=== PATIENT | male | born 1970 ===

== ENCOUNTER 2023-04-24 05:30 | Day surgery (SDC) | payer OTHER ==
[2023-04-21 10:49] LABS: URINE APPEARANCE Cloudy; URINE BILIRRUBIN Negative (NEGATIVE); URINE BLOOD Negative; URINE COLOR Yellow; URINE GLUCOSE Negative (NEGATIVE); URINE LEUKOCYTE Trace; URINE NITRATE Negative; URINE PROTEIN Negative (NEGATIVE)
[2023-04-21 10:54] LABS: URINE EPITHELIAL CELLS 34.3 uL (0.0-38.8); URINE RBC 6.1 uL (0.0-20.8); URINE WBC 34.6 uL (0.0-23.2)
[2023-04-21 11:13] LABS: ALBUMIN 4.2 gm/dL (3.4-5.0); BILIRUBIN TOTAL 0.53 mg/dL (0.3-1.2); CALCIUM 9.7 mg/dL (8.5-10.1); CREATININE SERUM 1.33 mg/dL (0.70-1.30); GFR 56.69; GLOBULINA 3.6 G/DL (2.4-3.5); POTASSIUM 4.16 mEq/L (3.5-5.1); TOTAL PROTEIN 7.8 gm/dL (6.4-8.2)
[2023-04-21 11:33] LABS: HEMATOCRIT 42.4 % (39.0-48.0); HEMOGLOBIN 14.2 g/dL (13-16.00); MEAN CELL VOLUME 86.1 fL (80.0-100.00); MEAN CORPUSCULAR HEMOGLOBIN 28.8 pg (27.00-32.0); MEAN CORPUSCULAR HGB CONC 33.5 g/dl (32.0-36.0); PLATELET COUNT 247 K/uL (150-450); RED BLOOD COUNT 4.92 M/uL (4.00-6.00); RED CELL DISTRIBUTION WIDTH 15.8 % (11.5-14.5)
[2023-04-21 11:47] LABS: INR 0.96; PARTIAL THROMBOPLASTIN TIME 28.5 SECONDS (22.0-34.0); PROTHROMBIN TIME 10.1 SECONDS (9.0-11.5)
[2023-04-21 12:03] LABS: URINE CRYSTALS FEW /HPF; URINE MUCUS HEAVY
[~2023-04-24 05:30] MED LIST: AMLODI PO; COZAAR100 MG PO
[2023-04-24] MEDS ORDERED: KETO10TA2 PO (09:00)
[2023-04-24] MEDS ORDERED: TYLENOL ARTHRI650 MG PO (09:00)
[2023-04-24] MEDS ORDERED: TRAMADOL HCL50 MG PO (09:00)
[2023-04-24] MEDS ORDERED: MIRALAX17 GM PO (09:00)
== END 2023-04-24 11:20 | disposition home or self-care (01) ==
LOC: CIR.AMB 05:30
PROVIDERS: ATTEND Surgery
DX: K43.7 Other and unspecified ventral hernia with gangrene (principal); I10 Essential (primary) hypertension; Z20.822 Contact with and (suspected) exposure to COVID-19
CPT/HCPCS: 49594; C1781